=== PATIENT | female | born 1985 | race Caucasian/White ===

== ENCOUNTER 2016-06-23 11:27 | Emergency (ER) | payer BC ==
[2016-06-23 11:52] VITALS: BP 120/76
--- NOTE | 2016-06-23 14:52 | UC ---
Keesha Poole Claudia, scribed for Alma Poe DO on 06/23/16 at 1251 . Skin Complaint HPI - HPI Summary HPI Summary: 31 year old female presents to the [facility] with a rash on her throat. Pt notes sudden onset last night after work. Pt states it began as a small patch of rashes but has progressively gotten worse and the patches have gotten larger since yesterday evening. Pt notes Benadryl last night 25mg did not alleviate her Sx. Pt denies any swelling of her lips or throat. Pt does note a sore throat. Pt notes that the rash is painful and tender to touch. Pt admits to a pain scale of 7/10 sore throat and the pain from the rash is a 6/10. Pt admits that it hurts to swallow and she has some nasal discharge and or sinus discomfort but denies any fever, drooling, wheezing, chills, cough, dental complications. Pt denies any recent exposure to any new plants, pet foods, meds , lotions, detergents etc. - History of Current Complaint Chief Complaint: UCAllergicReaction Time Seen by Provider: 06/23/16 12:34 Stated Complaint: THROAT PAIN, RASH Hx Obtained From: Patient Hx Last Menstrual Period: TUBAL 03/05/2016 Onset/Duration: Sudden Onset, Lasting Hours, Still Present Timing: Constant Onset Severity: Moderate Current Severity: Moderate Pain Intensity: 7 Location: Discrete - throat Character: Redness, Painful Aggravating: Touch Alleviating: Nothing Associated Signs & Symptoms: Positive: Rash, Tenderness. Negative: Nausea, Vomiting, Difficulty Breathing, Fever, Chills, Cough, Wheezing, Chest Pain, Throat Tightening, Abdominal Pain, Lightheadedness, Syncope - Allergy/Home Medications Allergies/Adverse Reactions: Allergies Allergy/AdvReac Type Severity Reaction Status Date / Time Penicillins Allergy Intermediate Hives Verified 06/23/16 11:44 sunflower seeds Allergy Severe Vomiting Uncoded 06/23/16 11:44 Home Medications: Home Medications diPHENhydraMINE PO* [Benadryl PO*] 1 tab PO TID PRN 06/23/16 [History Confirmed 06/23/16] Review of Systems Constitutional: Negative - NO FEVER CHILLS Skin: Rash Eyes: Negative ENT: Sore Throat Respiratory: Negative Cardiovascular: Negative Gastrointestinal: Negative Genitourinary: Negative Motor: Negative Neurovascular: Negative Musculoskeletal: Negative Neurological: Negative Psychological: Negative All Other Systems Reviewed And Are Negative: Yes PMH/Surg Hx/FS Hx/Imm Hx Previously Healthy: Yes Endocrine History Of: Denies: Diabetes, Thyroid Disease Cardiovascular History Of: Denies: Cardiac Disorders, Hypertension Respiratory History Of: Denies: COPD, Asthma GI/ History Of: Denies: Ulcer Neurological History Of: Reports: Migraine - Surgical History Surgical History: Yes Surgery Procedure, Year, and Place: wisdom teeth. TUBAL 02/2016 - Family History Known Family History: Positive: Cardiac Disease, Other - migraines, skin cancer both parents - Social History Occupation: Employed Full-time Alcohol Use: None Substance Use Type: None Smoking Status (MU): Never Smoked Tobacco Have You Smoked in the Last Year: Yes When Did the Patient Quit Smoking/Using Tobacco: 9 mos ago Physical Exam Triage Information Reviewed: Yes Appearance: Well-Appearing, No Pain Distress, Well-Nourished Vital Signs: Initial Vital Signs Temp 98.3 F 06/23/16 11:47 Pulse 85 06/23/16 11:47 Resp 16 06/23/16 11:47 BP 120/76 06/23/16 11:47 Pulse Ox 100 06/23/16 11:47 Vital Signs Reviewed: Yes Eye Exam: Normal Eyes: Positive: Conjunctiva Clear. Negative: Discharge ENT Exam: Normal ENT: Positive: Hearing grossly normal, TMs normal, Tonsillar swelling. Negative : Tonsillar exudate, Trismus, Muffled/hoarse voice Neck exam: Normal Neck: Positive: Supple, Tenderness @, Enlarged Nodes @ - nodes and rash tender, no woody edema noted Respiratory Exam: Normal Respiratory: Positive: Lungs clear, Normal breath sounds, No respiratory distress, No accessory muscle use Cardiovascular Exam: Normal Cardiovascular: Positive: RRR, No Murmur Abdominal Exam: Normal Abdomen Description: Positive: Nontender, Soft. Negative: CVA Tenderness (R), CVA Tenderness (L), Distended, Guarding Bowel Sounds: Positive: Present Musculoskeletal Exam: Normal Musculoskeletal: Positive: Strength Intact Neurological Exam: Normal Neurological: Positive: Alert, Muscle Tone Normal Psychological Exam: Normal Psychological: Positive: Age Appropriate Behavior Skin Exam: Other Skin: Positive: Other - patchy erythematous sandpapery rash over her throat Re-Evaluation - Re-Evaluation 1 Re-Evaluation Time: 13:54 Comment: Discussed further care and reulsts of the rapid strep test with the pt. Course/Dx - Differential Diagnoses - Skin Complaint Differential Diagnoses: Allergic Reaction, Cellulitis, [place], Viral Exanthem, Other - strep throat - Diagnoses Provider Diagnoses: cellulitis, pharyngitis Discharge - Discharge Plan Condition: Stable Disposition: HOME Prescriptions: Cephalexin CAP* [Keflex CAP*] 500 mg PO BID #20 cap Patient Education Materials: Cellulitis (ED), Pharyngitis (ED) Forms: *Work Release Referrals: Fransisca Deleon MD [Primary Care Provider] - (Follow up in 2 days if not improving.) Additional Instructions: We are suspicious that your have a strep infection even though the rapid strep came back negative. So we are doing some lab work for further evaluation and you will be called for abnormal results. If you develop any dizziness/ lightheadedness, swelling of the lips/tongue/throat, nausea, vomiting, abd pain , diarrhea or chest pain, shortness of breath you should be seen immediately. The documentation as recorded by the Keesha jama Claudia accurately reflects the service I personally performed and the decisions made by me, Alma Poe DO.
[2016-06-24 10:40] LABS: Hematocrit 40 % (35-47); Hemoglobin 13.3 g/dl (12.0-16.0); Mean Corpuscular HGB Conc 34 g/dl (31-36); Mean Corpuscular Hemoglobin 30 pg (27-31); Mean Corpuscular Volume 89 fL (80-97); Mean Platelet Volume 8 um3 (7.4-10.4); Red Blood Count 4.45 10^6/ul (4.0-5.4); Red Cell Distribution Width 13 % (10.5-15)
[2016-06-24 11:59] LABS: Erythrocyte Sed Rate 19 mm/Hr (0-14)
== END 2016-06-23 14:24 | disposition home or self-care (01) ==
LOC: UCEAST 11:27
DX: L03.221 Cellulitis of neck (principal); J02.9 Acute pharyngitis, unspecified; Z88.0 Allergy status to penicillin
CPT/HCPCS: 36415; 85025; 85652; 86060; 86141; 87070; 87651; 99212; G0463